=== PATIENT | male | born 1990 | race Caucasian/White ===

== ENCOUNTER 2016-07-24 00:09 | Emergency (ER) | payer SELFPAY ==
--- NOTE | 2016-07-24 00:13 | ED.ADGEN ---
Adult General Chief Complaint Chief Complaint "".. I ate these new snacks.. at work.. and was eating them after I got home.. and noticed .. I started getting these Hives.. I ve never had this happen before.. that the only thing new I taken in.. or been exposed too... I am allergic to pencillin.." HPI HPI Patient is a 26 year old male who presents with above hx and complaints of acute onset of hives and itching.. after eating "[employer]". No new soaps. or other exposures. Pt. normally healthy. No recent trauma. No travel. No ill contacts. Review of Systems Review of Systems Constitutional: Denies fever or chills [] Eyes: Denies change in visual acuity, redness, or eye pain [] HENT: Denies nasal congestion or sore throat [] Respiratory: Denies cough or shortness of breath [] Cardiovascular: No additional information not addressed in HPI [] GI: Denies abdominal pain, nausea, vomiting, bloody stools or diarrhea [] : Denies dysuria or hematuria [] Musculoskeletal: Denies back pain or joint pain [] Integument: Complaints of hives/ rash and itching after eating a new food for him. Neurologic: Denies headache, focal weakness or sensory changes [] Endocrine: Denies polyuria or polydipsia [] Family History Family History Non-contributory Current Medications Current Medications Current Medications Medications (Trade) Dose Ordered Sig/Dayana Start Time Stop Time Status Last Admin Dose Admin Albuterol Sulfate (Ventolin Hfa) 2 puff 1X ONCE 07/24/16 00:30 07/24/16 00:31 UNV Diphenhydramine HCl (Benadryl) 25 mg STK-MED ONCE 07/24/16 00:32 07/24/16 00:33 DC Famotidine (Pepcid) 20 mg 1X ONCE 07/24/16 00:30 07/24/16 00:31 UNV Magnesium Hydroxide (Milk Of Magnesia) 2,400 mg 1X ONCE 07/24/16 00:30 07/24/16 00:31 UNV Prednisone (Prednisone) 60 mg 1X ONCE 07/24/16 00:30 07/24/16 00:31 UNV Allergies Allergies Allergies Coded Allergies Type Severity Reaction Last Updated Verified No Known Allergies Allergy Unknown 07/24/16 Yes Physical Exam Physical Exam Constitutional: Well developed, well nourished, in moderately acute distress, non-toxic appearance. [] HENT: Normocephalic, atraumatic, bilateral external ears normal, oropharynx moist, no oral exudates, nose normal. [] Eyes: PERRLA, EOMI, conjunctiva normal, no discharge. [] Neck: Normal range of motion, no tenderness, supple, no stridor. [] Cardiovascular:Heart rate regular rhythm, no murmur [] Lungs & Thorax: Bilateral breath sounds clear to auscultation [] Abdomen: Bowel sounds normal, soft, no tenderness, no masses, no pulsatile masses. [] Skin: Warm, dry, no erythema, Hives Back: No tenderness, no CVA tenderness. [] Extremities: No tenderness, no cyanosis, no clubbing, ROM intact, no edema. [] Neurologic: Alert and oriented X 3, normal motor function, normal sensory function, no focal deficits noted. [] Psychologic: Affect normal, judgement normal, mood normal. [] Current Patient Data Vital Signs Vital Signs Date Time Temp Pulse Resp B/P Pulse Ox O2 Delivery O2 Flow Rate FiO2 07/24/16 00:24 97.8 94 20 96 Room Air EKG EKG [] Radiology/Procedures Radiology/Procedures [] Course & Med Decision Making Course & Med Decision Making Pertinent Labs and Imaging studies reviewed. (See chart for details). Take Benadryl 25-50 mg up 4 times a day for itching. Use MDI 2 puffs 4 times a day. Zantac 150 mg twice day for 10 days. Take prednisone 50 mg a day for 5 days. Avoid intake of suspect food. Follow-up primary care. Return if any concerns. [] Final Impression Final Impression 1. Hives- suspect new food intake [] Problems: Dragon Disclaimer Dragon Disclaimer This electronic medical record was generated, in whole or in part, using a voice recognition dictation system. SARA ALVARADO MD Jul 24, 2016 00:13
[2016-07-24 00:24] VITALS: BP 131/72
[2016-07-24] MEDS ORDERED: PRED50TA PO (00:26)
[2016-07-24] MEDS ORDERED: RANI150T6 PO (00:26)
[2016-07-24] MEDS ORDERED: DIPHENHYDRAMINE HCL 25 MG CAPSULE PO ONE ×2 (00:32→00:45)
[2016-07-24] MEDS ORDERED: MAGNESIUM HYDROXIDE 2,400 MG/30 ML ORAL.SUSP. PO ONE (00:45)
[2016-07-24] MEDS ORDERED: ALBUTEROL SULFATE 8GM INHALER. INH ONE (00:45)
[2016-07-24] MEDS ORDERED: PREDNISONE 20 MG TABLET PO ONE (00:45)
[2016-07-24] MEDS ORDERED: FAMOTIDINE 20 MG TABLET PO ONE (00:45)
== END 2016-07-24 00:45 | disposition home or self-care (01) ==
LOC: ER 00:09
DX: L50.9 Urticaria, unspecified (principal); L29.9 Pruritus, unspecified
CPT/HCPCS: 94640; 99284; J7512; J7613; Q0163

== ENCOUNTER 2017-01-06 19:53 | Emergency (ER) | payer SELFPAY ==
[~2017-01-06] VITALS: Ht 170.2 cm; Wt 99.8 kg
[~2017-01-06 19:53] MED LIST: PRED50TA PO; RANI150T6 PO
[2017-01-06] MEDS ORDERED: IV NORMAL SALINE 1,000ML 1,000 ML IV ONE (21:30)
[2017-01-06 21:39] LABS: BASO % 0 % (0-3); EOS % 0 % (0-3); HEMATOCRIT 42.8 % (39.0-53.0); HEMOGLOBIN 15.1 g/dL (13.0-17.5); LYMPH # 1.1 x10^3/uL (1.0-4.8); LYMPH % 13 % (24-48); MEAN CORPUSCULAR HEMOGLOBIN 29 pg (25-35); MEAN CORPUSCULAR HGB CONC 35 g/dL (31-37); MEAN CORPUSCULAR VOLUME 84 fL (79-100); MONO # 0.9 x10^3/uL (0.0-1.1); MONO % 10 % (0-9); NEUT # 6.7 x10^3uL (1.8-7.7); NEUT % 77 % (31-73); PLATELET COUNT 299 x10^3/uL (140-400); RED BLOOD COUNT 5.12 x10^6/uL (4.30-5.70); WHITE BLOOD COUNT 8.8 x10^3/uL (4.0-11.0)
[2017-01-06 21:44] LABS: CREATININE 1.1 mg/dL (0.7-1.3); GFR 82.2; POTASSIUM 3.5 mmol/L (3.5-5.1)
[2017-01-06] MEDS ORDERED: IBUPROFEN 600 MG TABLET. PO ONE (21:45)
[2017-01-06 22:14] LABS: INFLUENZA A PATIENT NEGATIVE (NEGATIVE); INFLUENZA B PATIENT NEGATIVE (NEGATIVE)
[2017-01-06] MEDS ORDERED: BENZ100C PO (22:17)
[2017-01-06 22:40] VITALS: BP 107/55
--- NOTE | 2017-01-07 01:08 | ED.ADGEN ---
Past History Past Medical History: No Pertinent History Past Surgical History: No Surgical History Alcohol Use: Occasionally Drug Use: None Adult General HPI HPI Patient is a 26-year-old male, with no significant past medical history, who presents to the emergency department with complaint of cough, body aches, generalized malaise, and "flulike symptoms". Patient states that he's had sick contacts through his children, both who are exhibiting symptoms of viral syndrome. Patient states he has had several episodes of emesis: Coughing, and also some diarrhea. Denies abdominal pain. Denies any changes in bowel or bladder habits, or pain with urination. He denies any fevers or chills, states he does have a sore throat and some rhinorrhea, denies any focal weakness, numbness, tingling, any chest pain or difficulty breathing, any rashes, any swelling extremities, any recent travel or surgery. He has not taken any medication for symptoms prior to coming to the ED. Patient febrile with a temperature of 100.6, orally, mildly tachycardic, in sinus rhythm with a heart rate of 102. 120/53, oxygen saturation 95-98% on room air, respiratory rate is 16-20 and unlabored.. Review of Systems Review of Systems Constitutional: Denies fever or chills [generalized malaise.] Eyes: Denies change in visual acuity, redness, or eye pain [] HENT: Nasal congestion and sore throat. Respiratory: Denies shortness of breath, complaining of cough nonproductive for the past 2 days. [] Cardiovascular: No additional information not addressed in HPI [] GI: Denies abdominal pain, nausea, vomiting, bloody stools or diarrhea [] : Denies dysuria or hematuria [] Musculoskeletal: Denies back pain or joint pain []body aches. Integument: Denies rash or skin lesions [] Neurologic: Denies headache, focal weakness or sensory changes [] Endocrine: Denies polyuria or polydipsia [] Current Medications Current Medications Current Medications Medications (Trade) Dose Ordered Sig/Dayana Start Time Stop Time Status Last Admin Dose Admin Ibuprofen (Motrin) 600 mg 1X ONCE 01/06/17 21:45 01/06/17 21:46 DC 01/06/17 21:45 600 MG Sodium Chloride 1,000 ml @ 1,000 mls/hr 1X ONCE 01/06/17 21:30 01/06/17 22:29 DC 01/06/17 21:30 1,000 MLS/HR Allergies Allergies Allergies Coded Allergies Type Severity Reaction Last Updated Verified No Known Allergies Allergy Unknown 07/24/16 Yes Physical Exam Physical Exam Constitutional: Well developed, well nourished, no acute distress, non-toxic appearance. [] HENT: Normocephalic, atraumatic, bilateral external ears normal, oropharynx moist, no oral exudates, nose normal. [] Eyes: PERRLA, EOMI, conjunctiva normal, no discharge. [] Neck: Normal range of motion, no tenderness, supple, no stridor. [] Cardiovascular:Heart rate regular rhythm, no murmur, S1, S2, rubs or gallops. [] Lungs & Thorax: Bilateral breath sounds clear to auscultation, no wheezing, rhonchi, rales. No chest wall crepitus or tenderness. [] Abdomen: Bowel sounds normal, soft, no tenderness, no rebound, rigidity, no guarding, no masses, no pulsatile masses. [] Skin: Warm, dry, no erythema, no rash. [] Back: No midline tenderness, no cells or deformities, patient complaining of tenderness and soreness throughout the muscles of his trapezius extending down his lower back. No CVA tenderness. [] Extremities: No tenderness, no cyanosis, no clubbing, ROM intact, no edema. Negative Homans sign.[] Neurologic: Alert and oriented X 3, normal motor function, normal sensory function, no focal deficits noted. [] Psychologic: Affect normal, judgement normal, mood normal. [] Current Patient Data Lab Results Laboratory Tests Test 01/06/17 20:35 White Blood Count 8.8 x10^3/uL (4.0-11.0) Red Blood Count 5.12 x10^6/uL (4.30-5.70) Hemoglobin 15.1 g/dL (13.0-17.5) Hematocrit 42.8 % (39.0-53.0) Mean Corpuscular Volume 84 fL (79-100) Mean Corpuscular Hemoglobin 29 pg (25-35) Mean Corpuscular Hemoglobin Concent 35 g/dL (31-37) Red Cell Distribution Width 13.0 % (11.5-14.5) Platelet Count 299 x10^3/uL (140-400) Neutrophils (%) (Auto) 77 % (31-73) H Lymphocytes (%) (Auto) 13 % (24-48) L Monocytes (%) (Auto) 10 % (0-9) H Eosinophils (%) (Auto) 0 % (0-3) Basophils (%) (Auto) 0 % (0-3) Neutrophils # (Auto) 6.7 x10^3uL (1.8-7.7) Lymphocytes # (Auto) 1.1 x10^3/uL (1.0-4.8) Monocytes # (Auto) 0.9 x10^3/uL (0.0-1.1) Eosinophils # (Auto) 0.0 x10^3/uL (0.0-0.7) Basophils # (Auto) 0.0 x10^3/uL (0.0-0.2) Sodium Level 137 mmol/L (136-145) Potassium Level 3.5 mmol/L (3.5-5.1) Chloride Level 101 mmol/L (98-107) Carbon Dioxide Level 27 mmol/L (21-32) Anion Gap 9 (6-14) Blood Urea Nitrogen 14 mg/dL (8-26) Creatinine 1.1 mg/dL (0.7-1.3) Estimated GFR (Cockcroft-Gault) 82.2 Glucose Level 100 mg/dL (70-99) H Calcium Level 9.0 mg/dL (8.5-10.1) Influenza Type A (Rapid) Negative (NEGATIVE) Influenza Type B (Rapid) Negative (NEGATIVE) EKG EKG ECG: Rhythm strip: Sinus tachycardia, heart rate 102 beats are minute. No ectopy.[] Radiology/Procedures Radiology/Procedures Not indicated.[] Course & Med Decision Making Course & Med Decision Making Pertinent Labs and Imaging studies reviewed. (See chart for details) Discussed with patient his symptoms are consistent with a viral syndrome, patient did have basic laboratory studies drawn after discussion, did not reveal any evidence of concerning findings. No indication for chest x-rays patient is no evidence of lower airspace disease, saturation is within normal limits. Flu swab was negative in the ED. Patient did receive a liter of normal saline, along with ibuprofen, heart rate was improved to the 80s, hyperpyrexia resolved, other vital signs remained within normal limits. Patient states he is feeling better although he still feels tired. Patient advised to continue over- the-counter medications such as acetaminophen, ibuprofen, as instructed on the packaging, temperature for Tessalon Perles, instructed to stay well-hydrated and get plenty of rest. We did discuss concerning symptoms that would prompt return to the emergency department. Patient voiced understanding and agreement with plan as stated. Discharged home with plan, precautions, and prescription as above. Final Impression Final Impression [] Problems: Dragon Disclaimer Dragon Disclaimer This electronic medical record was generated, in whole or in part, using a voice recognition dictation system. Departure: Impression: Primary Impression: Viral illness Additional Impression: Fever Disposition: 01 HOME, SELF-CARE Condition: IMPROVED Scripts Benzonatate (TESSALON PERLE) 100 Mg Capsule 100 MG PO PRN TID Y for COUGH, #15 CAP Prov: TERE MACK DO 01/06/17 TERE MACK DO Jan 07, 2017 01:08
== END 2017-01-06 22:40 | disposition home or self-care (01) ==
LOC: ER 19:53
DX: B34.9 Viral infection, unspecified (principal)
CPT/HCPCS: 36415; 80048; 85025; 87804; 96360; 99284-25; J7030